=== PATIENT | male | born 1990 | race Caucasian/White ===

== ENCOUNTER 2021-11-22 03:46 | Emergency (ER) | payer BC ==
[2021-11-22 04:37] LABS: ACETAMINOPHEN 5 ug/mL (<2)
== END 2021-11-22 06:05 ==
LOC: FB.ED 03:46
DX: T48.1X1A Poisoning by skeletal muscle relaxants [neuromuscular blocking agents], accidental (unintentional), initial encounter (principal); T40.2X1A Poisoning by other opioids, accidental (unintentional), initial encounter; F32.A Depression, unspecified; F41.9 Anxiety disorder, unspecified; F10.129 Alcohol abuse with intoxication, unspecified; Z88.8 Allergy status to other drugs, medicaments and biological substances; Z87.891 Personal history of nicotine dependence; Y90.5 Blood alcohol level of 100-119 mg/100 ml
CPT/HCPCS: 36415; 80053; 80143; 80179; 80307; 84443; 85025; 93005; 93010; 99284; 99285-25

== ENCOUNTER 2022-03-28 06:58 | Day surgery (SDC) | payer BC, OTHER ==
[2022-03-28] MEDS ORDERED: Propofol 200 MG/20 ML SDV IV ONE (06:59)
[2022-03-28] MEDS ORDERED: Midazolam 1 MG/ML 2 ML SDV IV ONE (06:59)
[2022-03-28] MEDS ORDERED: Lidocaine 2% 100 MG/5 ML Syringe IVPUSH ONE (06:59)
[2022-03-28] MEDS ORDERED: Lactated Ringers 1,000 ML IV SCH (07:00)
[2022-03-28] MEDS ORDERED: Sodium Chloride 0.9% 10 ML Syringe FLUSH PRN (07:00)
== END 2022-03-28 09:42 | disposition home or self-care (01) ==
LOC: FB.SDS 06:58
PROVIDERS: ATTEND Surgery
DX: K31.7 Polyp of stomach and duodenum (principal); R13.10 Dysphagia, unspecified; Z79.899 Other long term (current) drug therapy; Z88.8 Allergy status to other drugs, medicaments and biological substances; Z87.891 Personal history of nicotine dependence; Z98.890 Other specified postprocedural states
CPT/HCPCS: 43251; 88305; J2250; J2704; J7120; 00731-QZ

== ENCOUNTER 2022-11-14 16:21 | Emergency (ER) | payer OTHER, BC ==
[2022-11-14] MEDS ORDERED: Acetaminophen/HYDROcodone 325-5 MG Tab PO ONE (16:22)
[2022-11-14] MEDS ORDERED: Acetaminophen/HYDROcodone 325-5 MG Tab PO STA (18:56)
== END 2022-11-14 19:17 | disposition home or self-care (01) ==
LOC: FB.ED 16:21
DX: S60.211A Contusion of right wrist, initial encounter (principal); S50.11XA Contusion of right forearm, initial encounter; K21.9 Gastro-esophageal reflux disease without esophagitis; Z87.891 Personal history of nicotine dependence; Z79.899 Other long term (current) drug therapy; Z88.1 Allergy status to other antibiotic agents; W50.0XXA Accidental hit or strike by another person, initial encounter; Y92.89 Other specified places as the place of occurrence of the external cause; Y99.0 Civilian activity done for income or pay
CPT/HCPCS: 73110-RT; 99000; 99282; 99283; A9270-GY